=== PATIENT | female | born 1945 | race Caucasian/White ===

== ENCOUNTER 2021-11-06 10:56 | Inpatient (IN) | payer OTHER, MEDICAID ==
[~2021-11-06] VITALS: Ht 167.6 cm; Wt 90.3 kg
[~2021-11-06 10:56] MED LIST: AMLO10TA PO; APIX2.5 PO; ASPI-1822 PO; ATOR40TA PO; CEPH-588 PO; CITA20TA15 PO; HYDR-3233 PO; ICOS1SGL PO; ISOS20TA13 PO; METO25TE2 PO; NITR0.4T2 SL; PANT40EC PO; SEN30 PO; SEVE800T6 PO; TICA90TA PO
[2021-11-06 11:07] VITALS: BP 137/46
--- NOTE | 2021-11-06 11:28 | NUR ---
BIBA FROM HOME C/O CP AFTER DIALYSIS TODAY. STATES RECEIVING NITRO X3 DOSE AT HOME BY FAMILY. EMS GAVE 161MG ASA PILOT MANAGER. STATES PAIN WAS RESOLVED WHEN EMS ARRIVED BUT NOW STATES PAIN BACK AT 8/10. VITALS STABLE,, AAOX4, ON ROOM AIR, IV ESTABLISHED BY EMS PILOT MANAGER ON R AC 20G. EKG DONE AT BEDSIDE. STATES UNABLE TO URINATE.ON MONITOR.
[2021-11-06] MEDS ORDERED: AMLO5TAB PO (11:32)
[2021-11-06] MEDS ORDERED: ASPI-1749 PO (11:38)
[2021-11-06] MEDS ORDERED: HYDR-1100 PO (11:39)
[2021-11-06] MEDS ORDERED: NITR0.4T2 SL (11:39)
[2021-11-06] MEDS ORDERED: PANT40EC PO (11:39)
[2021-11-06] MEDS ORDERED: RANEX500 PO (11:39)
[2021-11-06] MEDS ORDERED: LIP80 PO (11:39)
[2021-11-06] MEDS ORDERED: ISOS60TE PO (11:39)
[2021-11-06] MEDS ORDERED: APIX2.5 PO (11:39)
[2021-11-06] MEDS ORDERED: CITA20TA15 PO (11:39)
[2021-11-06] MEDS ORDERED: METO25TA PO (11:39)
[2021-11-06] MEDS ORDERED: MULT-574 PO (11:39)
[2021-11-06] MEDS ORDERED: ICOS1SGL PO (11:39)
[2021-11-06] MEDS ORDERED: CLOP75TA55 PO (11:39)
--- NOTE | 2021-11-06 11:43 | NUR ---
BLOOD DRAWN BY LAB. PT STATES UNABLE TO PRODUCE URINE. ANDREED MADE AWARE.
--- NOTE | 2021-11-06 11:46 | NUR ---
XR AT BEDSIDE
--- NOTE | 2021-11-06 12:03 | NUR ---
STATES PAIN DECREASED TO 2/10. ERMD MADE AWARE
[2021-11-06 12:24] LABS: ALBUMIN 3.1 g/dL (3.4-5.0); ANION GAP 12.6 (8-16); ASPARTATE AMINOTRANSFERASE 17 U/L (15-37); CARBON DIOXIDE 31.1 mmol/L (21-32); CHLORIDE 95 mmol/L (98-107); CREATININE 3.9 mg/dL (0.6-1.3); GLUCOSE 379 mg/dL (74-106); LIPASE 137 U/L (73-393); POTASSIUM 3.7 mmol/L (3.5-5.1); SODIUM SERUM 135 mmol/L (136-145); TOTAL BILIRUBIN 0.3 mg/dL (0.0-1.0); UREA NITROGEN, BLOOD 27 mg/dL (7-18)
[2021-11-06 12:51] LABS: BASOPHILS % (AUTO) 0.3 % (0.0-2.0); EOSINOPHILS # (AUTO) 0.1 K/uL (0-0.4); LYMPHOCYTES # (AUTO) 0.6 K/uL (2.5-16.5); LYMPHOCYTES % (AUTO) 8.7 % (20.5-51.1); MEAN CORPUSCULAR HEMOGLOBIN 31 pg (27-31); MEAN CORPUSCULAR HGB CONC 33 g/dL (33-37); MEAN CORPUSCULAR VOLUME 94.8 fL (80-94); MONOCYTES # (AUTO) 0.4 K/uL (0.8-1.0); MONOCYTES % (AUTO) 5.7 % (1.7-9.3); NEUTROPHILS # (AUTO) 5.6 K/uL (1.8-7.7); NEUTROPHILS % (AUTO) 84.3 % (42.2-75.2); PLATELET COUNT (AUTO) 247 K/uL (140-450); RED BLOOD CELL COUNT(AUTO) 1.96 MIL/uL (4.20-5.40); RED CELL DISTRIBUTION WIDTH 17.4 % (11.6-13.7); WHITE BLOOD COUNT (AUTO) 6.6 K/uL (4.8-10.8)
[2021-11-06 12:54] LABS: HEMATOCRIT 18.6 % (36-48); HEMOGLOBIN 6.1 g/dL (12.0-16.0)
--- NOTE | 2021-11-06 13:50 | NUR ---
[employer] INFO FOR DAUGHTER: [phone]
--- NOTE | 2021-11-06 14:18 | NUR ---
DR MAHER AT BEDSIDE WITH MUFFLER INSTALLER FOR BLOOD TXFUSION CONSENT.
--- NOTE | 2021-11-06 16:00 | NUR ---
15 MIN POST BLOOD TRANSFUSION- NO REACTION OBESERVED. VITALS STABLE. INCREASED RATE TO 180ML/HR
[2021-11-06] MEDS ORDERED: POTASSIUM CHLORIDE 10 MEQ TABER PO PRN (17:30)
[2021-11-06] MEDS ORDERED: guaiFENesin DM 200/20 MG-10 ML 10 ML UDC PO PRN (17:30)
[2021-11-06] MEDS ORDERED: ZOLPIDEM 5 MG TAB PO PRN (17:30)
[2021-11-06] MEDS ORDERED: DOCUSATE SODIUM 100 MG GELCAP PO PRN (17:30)
[2021-11-06] MEDS ORDERED: ONDANSETRON 4 MG/2 ML VIAL IM/IVP PRN (17:30)
--- NOTE | 2021-11-06 18:48 | NUR ---
meal provided to patient.
[2021-11-06 19:09] LABS: FREE T4 (FREE THYROXINE) 1.05 ng/dL (0.76-1.46); PHOSPHORUS 2.5 mg/dL (2.5-4.9); THYROID STIMULATING HORMONE 0.62 uIU/mL (0.34-3.74)
--- NOTE | 2021-11-06 19:30 | NUR ---
Patient will be admitted to care of Dr. Welch. Admited to Tele. Will go to room 124B. Belongings list completed. Report to
--- NOTE | 2021-11-06 19:30 | NUR ---
PT TAKEN TO FLOOR WITH GIOVANNI PETIT AND EMT CHARLEY
--- NOTE | 2021-11-06 19:40 | NUR ---
RECEIVED PT FROM ER. REPORT GIVEN BY RN. PATIENT IS AWAKE,ALERT AND ORIENTED, POLISH SPEAKING ABLE TO UNDERSTAND LITTLE [place]. DENIES CHEST PAIN, DENIES SHORTNESS OF BREATH. SKIN WARM AND DRY TO TOUCH. ORIENTED TO MST SETTING, RN NAMES PROVIDED, UPDATED WHITEBOARD. BED IN THE LOWEST AND LOCKED POSITION FOR SAFETY, CALL LIGHT WITHIN REACH, EXPLAINED ON HOW TO USE, PT DEMONSTRATED USE. FALL PRECAUTION IN PLACE, BED ALARM ON.
[2021-11-06 20:00] VITALS: BP 106/31
--- NOTE | 2021-11-06 20:00 | NUR ---
SPOKE WITH DAUGHTER RODGER FOR ADMITTING QUESTIONS. INFORMED OF PT'S RM NUMBER.
[2021-11-06] MEDS: amLODIPine 5 MG TAB PO SCH (20:58)
[2021-11-06] MEDS: METOPROLOL 25 MG TAB PO SCH (20:58)
[2021-11-06] MEDS: ATORVASTATIN 20 MG TAB PO SCH (20:58)
--- NOTE | 2021-11-06 20:58 | NUR ---
BP-106/31 HR-53 BP MEDS LOPRESSOR AND NORVASC HELD PER DR. WILLARD.
--- NOTE | 2021-11-06 21:52 | NUR ---
2015 TROPONIN DONE RESULT 68. 2058 LAB CALLED FOR TROPONIN RESULTS. [address] WILLARD REGARDING TROPONIN RESULTS 2151 TROPONIN-[address] WILLARD, NO NEW ORDERS RECEIVED.
[2021-11-07] VITALS: BP 123/49
--- NOTE | 2021-11-07 | NUR ---
PATIENT IS ASLEEP, EASILY AROUSABLE BY VERBAL STIMULI. DENIES CHEST PAIN AT THIS TIME. VITAL SIGNS FOLLOWS: BP-123/49 HR-62 RR-18 TEMP-97.8 AND O2 SAT 95% ON ROOM AIR.
[2021-11-07 04:00] VITALS: BP 126/35
--- NOTE | 2021-11-07 04:17 | NUR ---
PATIENT IS ASLEEP. BREATHING EVEN AND UNLABORED. CALL LIGHT WITHIN REACH.
[2021-11-07 05:41] LABS: BASOPHILS % (AUTO) 0.5 % (0.0-2.0); EOSINOPHILS # (AUTO) 0.1 K/uL (0-0.4); EOSINOPHILS % (AUTO) 2.6 % (0.0-4.0); HEMATOCRIT 21.9 % (36-48); HEMOGLOBIN 7.4 g/dL (12.0-16.0); LYMPHOCYTES # (AUTO) 0.8 K/uL (2.5-16.5); LYMPHOCYTES % (AUTO) 17.9 % (20.5-51.1); MEAN CORPUSCULAR HEMOGLOBIN 32 pg (27-31); MEAN CORPUSCULAR HGB CONC 34 g/dL (33-37); MEAN CORPUSCULAR VOLUME 93.3 fL (80-94); MONOCYTES # (AUTO) 0.4 K/uL (0.8-1.0); MONOCYTES % (AUTO) 8.6 % (1.7-9.3); NEUTROPHILS # (AUTO) 3.3 K/uL (1.8-7.7); NEUTROPHILS % (AUTO) 70.4 % (42.2-75.2); PLATELET COUNT (AUTO) 304 K/uL (140-450); RED BLOOD CELL COUNT(AUTO) 2.35 MIL/uL (4.20-5.40); RED CELL DISTRIBUTION WIDTH 16.7 % (11.6-13.7); WHITE BLOOD COUNT (AUTO) 4.7 K/uL (4.8-10.8)
[2021-11-07 05:48] LABS: ANION GAP 14.1 (8-16); CARBON DIOXIDE 30.3 mmol/L (21-32); CHLORIDE 97 mmol/L (98-107); GLUCOSE 141 mg/dL (74-106); POTASSIUM 4.4 mmol/L (3.5-5.1); SODIUM SERUM 137 mmol/L (136-145); UREA NITROGEN, BLOOD 47 mg/dL (7-18)
[2021-11-07 05:56] LABS: CREATININE 5.5 mg/dL (0.6-1.3)
--- NOTE | 2021-11-07 06:10 | NUR ---
PATIENT ASLEEP. NO DISTRESS NOTED. ALL NEEDS ATTENDED TO. SAFETY PRECAUTIONS IN PLACE, CALL LIGHT REMAINED WITHIN REACH.
--- NOTE | 2021-11-07 07:08 | NUR ---
ENDORSED CARE TO AM NURSE FOR CONTINUITY OF CARE.
--- NOTE | 2021-11-07 07:10 | NUR ---
RECEIVED ENDORSEMENT FROM WAITER/WAITRESS CLUB NURSE FOR CONTINUITY OF CARE. PATIENT. SLEEP BUT ABLE TO WAKE UP DENIES PAIN AT THIS TIME. RESPIRATION EVEN AND NOT LABORED NO SHORTNESS OF BREATH ON ROOM AIR. AV SHUNT ON LEFT UPPER ARM AV SHUNT. ALL SAFETY MEASURE IN PLACE.
[2021-11-07 08:00] VITALS: BP 152/48
--- NOTE | 2021-11-07 08:21 | NUR ---
DR. PURVIS AT BED SIDE.
--- NOTE | 2021-11-07 08:56 | NUR ---
PATIENT HAS BEEN SCREENED AND CATEGORIZED MODERATE NUTRITION RISK. PATIENT WILL BE SEEN WITHIN 3-5 DAYS OF ADMISSION. / IRVING GANDARA RD
[2021-11-07 09:06] LABS: T4 (THYROXINE) 7.4 ug/dL (4.5-12.0)
[2021-11-07] MEDS: CITALOPRAM 20 MG TAB PO SCH (09:21)
[2021-11-07] MEDS: PANTOPRAZOLE 40 MG TABEC PO SCH (09:21)
[2021-11-07] MEDS: amLODIPine 5 MG TAB PO SCH ×2 (09:21→21:00)
[2021-11-07] MEDS: METOPROLOL 25 MG TAB PO SCH ×2 (09:22→21:00)
--- NOTE | 2021-11-07 09:27 | NUR ---
GIVEN MEDICATION AND PATIENT COMPLAIN UNABLE TO HAVE BOWEL MOVEMENT GIVEN COLACE ORDER FOR CONSTIPATION.
[2021-11-07 12:00] VITALS: BP 136/52
--- NOTE | 2021-11-07 15:29 | NUR ---
PATIENT NOTED WITH READING ON HEART MONITOR OF 49 DALI AND JUNCTIONAL. ASSESS PATIENT VERBALLY RESPONSIVE AND DENIES PAIN OR ANY DISCOMFORT.
--- NOTE | 2021-11-07 15:34 | NUR ---
DC PLANNIN YRS OLD FEMALE PATIENT WAS ADMITTED FROM HOME WITH A DX OF CHEST PAIN, ANEMIA. PATIENT HAS A HX OF ESRD ON HEMODIALYSIS CAD,HLD,HTN AND ELECTROLYTES IMBALANCE. CXR SHOWED CARDIOMEGALY AND PULMONARY VASCULAR CONGESTION. ON ADMISSION H/H 6.1/18.6 ADMINISTERED 1 UNIT OF PRBC H/H 7.4/21.9. ADMINISTERED AMIODARONE DRIP AND CONTINUED HOME MEDS. CONSULTED WITH NEPHRO, CARDIO AND PULMO. DC PLAN PER PT RESPOND TO THE TREATMENT. Addendum: 11/09/21 at 1540 by Anny Finn RN DC PLANNING: SEEN BY [facility] CONTINUE HD MWF. COAGULATING OPERATOR DR RAMIREZ CONVERTED TO SR CHANGED AMIODARONE TO PO. PULMO TO CONTINUE AGGRESSIVE DIALYSIS WITH NET NEGATIVE FLUID REMOVAL. CM TO FOLLOW
[2021-11-07 16:00] VITALS: BP 119/59
--- NOTE | 2021-11-07 19:46 | NUR ---
PATIENT ON BED RESTING WITH CALL LIGHT WITH IN EASY REACH. ON STABLE CONDITION.
[2021-11-07 20:00] VITALS: BP 159/56
[2021-11-07] MEDS: ATORVASTATIN 20 MG TAB PO SCH (21:00)
[2021-11-08] VITALS: BP 134/58
--- NOTE | 2021-11-08 01:30 | NUR ---
PATIENT ALERT SPEAKS ITALIAN ON MONITOR SINUS LUNGS DIMINISH SAT 96% PATIENT IS INCONT PATIENT IS OBESE NOT ABLE TO GET UP AND WALK TO BATHROOM. B/P 159/56 PATIENT TOOK ALL OF HER MEDS TWO FOR BLOOD PRESSURE. AND ONE FOR CHOLESTROL. NO C/O OF DISCOMFORT.
[2021-11-08 04:00] VITALS: BP 106/50
[2021-11-08 06:12] LABS: BASOPHILS % (AUTO) 0.3 % (0.0-2.0); EOSINOPHILS # (AUTO) 0.2 K/uL (0-0.4); EOSINOPHILS % (AUTO) 1.5 % (0.0-4.0); HEMATOCRIT 23.6 % (36-48); HEMOGLOBIN 7.9 g/dL (12.0-16.0); LYMPHOCYTES # (AUTO) 0.7 K/uL (2.5-16.5); LYMPHOCYTES % (AUTO) 6.8 % (20.5-51.1); MEAN CORPUSCULAR HEMOGLOBIN 31 pg (27-31); MEAN CORPUSCULAR HGB CONC 33 g/dL (33-37); MEAN CORPUSCULAR VOLUME 94.1 fL (80-94); MONOCYTES # (AUTO) 0.6 K/uL (0.8-1.0); MONOCYTES % (AUTO) 5.6 % (1.7-9.3); NEUTROPHILS # (AUTO) 9.4 K/uL (1.8-7.7); NEUTROPHILS % (AUTO) 85.8 % (42.2-75.2); PLATELET COUNT (AUTO) 243 K/uL (140-450); RED BLOOD CELL COUNT(AUTO) 2.51 MIL/uL (4.20-5.40); RED CELL DISTRIBUTION WIDTH 16.7 % (11.6-13.7)
[2021-11-08 07:03] LABS: ANION GAP 20.4 (8-16); CARBON DIOXIDE 25.7 mmol/L (21-32); CHLORIDE 92 mmol/L (98-107); GLUCOSE 196 mg/dL (74-106); POTASSIUM 5.1 mmol/L (3.5-5.1); SODIUM SERUM 133 mmol/L (136-145)
[2021-11-08 07:22] LABS: CREATININE 7.2 mg/dL (0.6-1.3); UREA NITROGEN, BLOOD 80 mg/dL (7-18)
--- NOTE | 2021-11-08 07:30 | NUR ---
RECEIVED REPORT FROM SALES PROJECT COORDINATOR NURSE FOR CONTINUITY OF CARE, POC DISCUSSED. PT IS RESTING IN BED, ON ROOM AIR WITH CHEST RISING AND FALLING EVEN AND UNLABORED. PT HAS A RIGHT AC 20 G. AND A LEFT AV SHUNT, PENDING CONSULT WITH RICK. RECEIVED CRITICAL FROM FABIO MCCORMACK 7.2 BUN 80. PENDING HD. ALL SAFETY MEASURES IN PLACE, CALL LIGHT WITHIN REACH WILL CONTINUE TO MONITOR.
[2021-11-08 08:00] VITALS: BP 94/40
[2021-11-08] MEDS: METOPROLOL 25 MG TAB PO SCH (08:38)
[2021-11-08] MEDS: amLODIPine 5 MG TAB PO SCH (08:38)
[2021-11-08] MEDS: CITALOPRAM 20 MG TAB PO SCH (09:04)
[2021-11-08] MEDS: PANTOPRAZOLE 40 MG TABEC PO SCH (09:06)
[2021-11-08] MEDS ORDERED: IBUPROFEN 400 MG TAB PO PRN (09:20)
--- NOTE | 2021-11-08 09:30 | NUR ---
LINK MEDICATION ADMINISTERED PER MD ORDER, PT TOLERATED ADMINISTRATION. LARD BLEACHER ASSISTED WITH CHANGING AND CLEANING OF THE PT. PT LUNG SOUNDS DIMINISHED. LEFT AV SHUNT NOTED. PT HAS A RIGHT AC 20 G SALINE LOCK. PT INCONTINENT. PT A&OX2. ALL SAFETY MEASURES IN PLACE, CALL LIGHT WITHIN REACH. WILL CONTINUE TO MONITOR.
--- NOTE | 2021-11-08 11:27 | NUR ---
PT IS RESTING WITH EYES SHUT, NO S/S OF ACUTE DISTRESS. ALL SAFETY MEASURES IN PLACE. CALL LIGHT WITHIN REACH. WILL CONTINUE TO MONITOR.
[2021-11-08 12:00] VITALS: BP 148/45
--- NOTE | 2021-11-08 12:03 | NUR ---
PT REPORTS HEADACHE FEELING BETTER AND ALL NEEDS ARE BEING MET. ALL SAFETY MEASURES IN PLACE, CALL LIGHT WITHIN REACH. WILL CONTINUE TO MONITOR.
--- NOTE | 2021-11-08 13:33 | NUR ---
REORIENTED PT THAT SHE IS IN THE HOSPITAL, PT CONFUSED, THOUGHT SHE WAS AT HOME. PT STABLE WITH ALL SAFETY MEASURES IN PLACE, CALL LIGHT WITHIN REACH.
--- NOTE | 2021-11-08 15:20 | NUR ---
ROUNDED ON PT, PT IS RESTING IN CHAIR NEXT TO BED WITH ALL SAFETY MEASURES IN PLACE. NO ACUTE S/S OF DISTRESS. ALL SAFETY MEASURES IN PLACE. CALL LIGHT WITHIN REACH. WILL CONTINUE TO MONITOR.
[2021-11-08 16:00] VITALS: BP 128/40
[2021-11-08] MEDS ORDERED: EPOETIN ALFA-EPBX 20,000 UNITS/ML VIAL SUBQ SCH (16:00)
--- NOTE | 2021-11-08 16:34 | NUR ---
LINK MEDICATION ADMINISTERED INTO ABD, PT TOLERATED ADMINISTRATION. DAUGHTER AT BEDSIDE, ALL QUESTIONS HAS BEEN ANSWERED. BLOOD GLUCOSE ASSESSED, 223. PER DAUGHTER, PT DOES NOT TAKE INSULIN AT HOME AND DOES NOT WANT HER TO RECEIVE THE INSULIN SINCE SHE IS NOT EATING MUCH. ALL QUESTIONS ANSWERED AND EDUCATION PROVIDED. ALL SAFETY MEASURES IN PLACE. CALL LIGHT WITHIN REACH. WILL CONTINUE TO MONITOR.
[2021-11-08] MEDS ORDERED: DEXTROSE 50% 50 ML SYR IVP PRN (16:45)
--- NOTE | 2021-11-08 17:56 | NUR ---
ROUNDED ON PT, PT ASLEEP IN BED WITH CHEST RISING AND FALLING EVEN AND UNLABORED. ALL SAFETY MEASURES IN PLACE, CALL LIGHT WITHIN REACH. WILL CONTINUE TO MONITOR.
--- NOTE | 2021-11-08 18:41 | NUR ---
HD AT BEDSIDE. ALL SAFETY MEASURES IN PLACE, CALL LIGHT WITHIN REACH. WILL CONTINUE TO MONITOR.
--- NOTE | 2021-11-08 18:48 | NUR ---
ALL NEEDS HAVE BEEN MET THROUGHOUT THE SHIFT, PT IS STABLE. WILL BE ENDORSED TO FORM RAISER NURSE AT 1900. ALL SAFETY MEASURES IN PLACE, CALL LIGHT WITHIN REACH.
--- NOTE | 2021-11-08 19:05 | NUR ---
TELEPHONE CONSENT FOR HD OBTAINED BY DAUGHTER, AND DR. WILLARD.
--- NOTE | 2021-11-08 19:15 | NUR ---
RECEIVED REPORT FROM AM RN. PATIENT IS ASLEEP AT THIS TIME. ON GOING HEMODIALYSIS ORDERED. NO S/SX OF PAIN NOR DISCOMFORT. NO ACUTE RESPIRATORY DISTRESS NOTED. BED IN THE LOWEST AND LOCKED POSITION FOR SAFETY, CALL LIGHT WITHIN REACH.
--- NOTE | 2021-11-08 19:20 | NUR ---
RECEIVED PATIENT AWAKE, ALERT, AND SITTING UP IN BED WATCHING TV. PATIENT IS RECEIVING A BLOOD TRANSFUSION, WHICH IS SCHEDULED TO BE COMPLETED BY 2015. PATIENT CURRENTLY DOES NOT REPORT ANY ADVERSE REACTIONS. PATIENT CURRENTLY DEPENDENT ON SUPPLEMENTAL OXYGEN, AT 2L VIA NC. HAS AV SHUNT, LEFT UPPER ARM. 22G PERIPHERAL IV RIGHT HAND. WILL CONTINUE TO MONITOR PATIENT FOR ANY ADVERSE REACTIONS TO BLOOD TRANSFUSION. Addendum: 11/10/21 at 0150 by Melly Sumner RN DISREGARD THIS NOTE INCORRECT DATE
[2021-11-08] MEDS: NITROGLYCERIN 0.4 MG TAB SL PRN ×3 (19:40→19:55)
[2021-11-08 20:00] VITALS: BP 118/51
[2021-11-08] MEDS ORDERED: DIGOXIN 0.25 MG/ML AMP IV ONE ×2 (20:00→20:08)
--- NOTE | 2021-11-08 20:20 | NUR ---
1939- PATIENT COMPLAINING OF 01/29 CHEST PAIN, NON RADIATING BP-169/69 HR-133 AFIB ON CITRIX LEAD RR-21, O2 SAT 91%, PLACED ON O2-2L. NITRO SUBLINGUAL GIVEN ORDERED. 1944-10/29 CHEST PAIN, BP-140/62 HR-115 AFIB ON CITRIX LEAD, O2 SAT ON 2L NC-99 %, 2ND NITRO GIVEN ORDERED. 1954 -10/29 CHEST PAIN, BP-128/55, HR-128 AFIB ON CITRIX LEAD, SAT 100%. 3RD NITRO GIVEN ORDERED. 1955- CALLED AND INFORMED DR. RAMIREZ OF PT'S COMPLAINT OF CHEST PAIN AND CARDIAC RHYTHM CONVERTED FROM SR TO AFIB IN THE 'S, INFORMED MD CURRENTLY ON HEMODIALYSIS, ORDERED RECEIVED AND WILL BE CARRIED OUT. (DIGOXIN AND AMIODARONE PO) 1999- BP DROPPED TO 81/27, ONGOING HD AT THIS TIME, PER HD RN WILL GIVE SOME VOLUME TO PT, INFORMED DR. RAMIREZ AND PATIENT STILL COMPLAINING OF CHEST PAIN AT THIS TIME. PER MD TRANSFER PATIENT TO ICU TO START AMIODARONE DRIP. 2014-DIGOXIN GIVEN ORDERED, HR 128 AFIB ON THE CITRIX LEAD BP-118/51. CURRENTLY PATIENT DENIES CHEST PAIN. 2019- POST DIGOXIN HR-122 AFIB ON THE CITRIX LEAD. PATIENT CURRENTLY ASLEEP. NO S/SX OF PAIN AT THIS TIME. ONGOING HEMODIALYSIS.
[2021-11-08] MEDS: BLOOD GLUCOSE MONITORING 1 DEV DEV FS SCH (20:24)
[2021-11-08] MEDS: ATORVASTATIN 20 MG TAB PO SCH (21:00)
--- NOTE | 2021-11-08 21:30 | NUR ---
DR. WILLARD PIPE CHIPPER FOR DR. PURVIS, INFORMED OF PATIENT'S CHANGE IN CONDITION AND ORDER FROM DR. RAMIREZ TO TRANSFER TO ICU. ORDERS RECEIVED AND WILL BE CARRIED OUT.
--- NOTE | 2021-11-08 21:57 | NUR ---
INFORMED DAUGHTER RODGER OF CHANGE IN CONDITION AND TRANSFER OF PATIENT TO ICU 6.
--- NOTE | 2021-11-08 22:15 | NUR ---
PATIENT TRANSFERRED TO ICU BED 2, BEDSIDE REPORT GIVEN TO GIOVANNI CALLAHAN. ALL BELONGINGS WITH PATIENT.
--- NOTE | 2021-11-08 22:20 | NUR ---
RECEIVED ENDORSEMENT FROM [facility] NURSE. PATIENT TRANSFERRED TO ICU FOR MANAGEMENT OF AFIB. PATIENT IS AWAKE, ALERT AND RESPONSIVE. PATIENT IS DEPENDENT ON HEMODIALYSIS AND DURING SESSION, THIS EVENING, 2L OF FLUID WAS REMOVED. PATIENT WITH LEFT AV SHUNT, PERIPHERAL IV RIGHT AC 20G, PERIPHERAL IV RIGHT FOREARM (20G).
[2021-11-08] MEDS ORDERED: AMIODARONE 450 MG in DEXTROSE 5% 250 ML IV SCH (22:25)
[2021-11-08] MEDS ORDERED: AMIODARONE 150 MG in DEXTROSE 5% 100 ML IV SCH (22:25)
[2021-11-08] MEDS ORDERED: NOREPINEPHRINE 4 MG in DEXTROSE 5% 250 ML IV PRN (22:25)
[2021-11-08] MEDS ORDERED: AMIODARONE 150 MG/3 ML VIAL IV ONE (22:38)
[2021-11-08] MEDS ORDERED: AMIODARONE 450 MG/9 ML VIAL IV ONE (22:39)
[2021-11-08 23:20] LABS: HEMATOCRIT 24.1 % (36-48); HEMOGLOBIN 7.7 g/dL (12.0-16.0); MEAN CORPUSCULAR VOLUME 96.5 fL (80-94); RED BLOOD CELL COUNT(AUTO) 2.49 MIL/uL (4.20-5.40); WHITE BLOOD COUNT (AUTO) 7.4 K/uL (4.8-10.8)
[2021-11-08 23:21] LABS: BASOPHILS % (AUTO) 0.1 % (0.0-2.0); EOSINOPHILS % (AUTO) 0.5 % (0.0-4.0); LYMPHOCYTES # (AUTO) 0.3 K/uL (2.5-16.5); LYMPHOCYTES % (AUTO) 4.1 % (20.5-51.1); MEAN CORPUSCULAR HEMOGLOBIN 31 pg (27-31); MEAN CORPUSCULAR HGB CONC 32 g/dL (33-37); MONOCYTES # (AUTO) 0.3 K/uL (0.8-1.0); MONOCYTES % (AUTO) 3.6 % (1.7-9.3); NEUTROPHILS # (AUTO) 6.8 K/uL (1.8-7.7); NEUTROPHILS % (AUTO) 91.7 % (42.2-75.2); PLATELET COUNT (AUTO) 190 K/uL (140-450); RED CELL DISTRIBUTION WIDTH 16.9 % (11.6-13.7)
[2021-11-08 23:33] LABS: ANION GAP 13.5 (8-16); CARBON DIOXIDE 29.2 mmol/L (21-32); CHLORIDE 100 mmol/L (98-107); GLUCOSE 203 mg/dL (74-106); POTASSIUM 3.7 mmol/L (3.5-5.1); SODIUM SERUM 139 mmol/L (136-145); UREA NITROGEN, BLOOD 33 mg/dL (7-18)
[2021-11-08 23:34] LABS: CREATININE 4.1 mg/dL (0.6-1.3)
[2021-11-09] VITALS (24 sets, daily range): BP systolic 119–185; BP diastolic 24–82
--- NOTE | 2021-11-09 | NUR ---
PATIENT REMAINS WITH FLUCTUATIONS OF HEART RATE AND BP. WILL CONTINUE TO MONITOR PATIENT
--- NOTE | 2021-11-09 01:10 | NUR ---
BEDSIDE GLUCOSE CHECK = 196 ADMINISTERED HUMALOG 2 UNITS PER MD ORDERS Addendum: 11/10/21 at 0212 by Melly Sumner RN PLEASE DISREGARD NOTE INCORRECT TIME
[2021-11-09 06:50] LABS: ANION GAP 13.3 (8-16); CARBON DIOXIDE 29.9 mmol/L (21-32); CHLORIDE 102 mmol/L (98-107); GLUCOSE 160 mg/dL (74-106); POTASSIUM 4.2 mmol/L (3.5-5.1); SODIUM SERUM 141 mmol/L (136-145); UREA NITROGEN, BLOOD 34 mg/dL (7-18)
--- NOTE | 2021-11-09 07:15 | NUR ---
ASSUMED pt care report received from Melly DAVILA at the bedside met pt awake alert Persian speaking vitals signs stable denies pain, Amiodarone drip turned off as per report received, O2 LNC will continue to monitor and treat.
[2021-11-09 07:22] LABS: HEMOGLOBIN 7.1 g/dL (12.0-16.0); MEAN CORPUSCULAR HEMOGLOBIN 32 pg (27-31); MEAN CORPUSCULAR VOLUME 94.3 fL (80-94); RED BLOOD CELL COUNT(AUTO) 2.23 MIL/uL (4.20-5.40); WHITE BLOOD COUNT (AUTO) 6.3 K/uL (4.8-10.8)
[2021-11-09 07:23] LABS: BASOPHILS % (AUTO) 0.2 % (0.0-2.0); EOSINOPHILS # (AUTO) 0.1 K/uL (0-0.4); EOSINOPHILS % (AUTO) 1.1 % (0.0-4.0); LYMPHOCYTES # (AUTO) 0.4 K/uL (2.5-16.5); LYMPHOCYTES % (AUTO) 6.7 % (20.5-51.1); MEAN CORPUSCULAR HGB CONC 34 g/dL (33-37); MONOCYTES # (AUTO) 0.5 K/uL (0.8-1.0); MONOCYTES % (AUTO) 7.5 % (1.7-9.3); NEUTROPHILS # (AUTO) 5.4 K/uL (1.8-7.7); NEUTROPHILS % (AUTO) 84.5 % (42.2-75.2); PLATELET COUNT (AUTO) 197 K/uL (140-450); RED CELL DISTRIBUTION WIDTH 16.6 % (11.6-13.7)
[2021-11-09] MEDS: BLOOD GLUCOSE MONITORING 1 DEV DEV FS SCH ×4 (07:30→21:08)
--- NOTE | 2021-11-09 07:32 | NUR ---
ENDORSED CARE OF PATIENT TO DAY SHIFT (GIOVANNI BHATT)
[2021-11-09 07:38] LABS: CREATININE 4.8 mg/dL (0.6-1.3)
[2021-11-09] MEDS: INSULIN LISPRO SLIDING SCALE 100 UNITS/ML VIAL SUBQ PRN ×4 (09:45→21:14)
[2021-11-09] MEDS: PANTOPRAZOLE 40 MG TABEC PO SCH (09:47)
[2021-11-09] MEDS ORDERED: hydrALAZINE 20 MG/ML VIAL IVP PRN (09:50)
[2021-11-09] MEDS: CITALOPRAM 20 MG TAB PO SCH (09:58)
[2021-11-09] MEDS ORDERED: MORPHINE SULFATE 2 MG/ML SYR IVP PRN (10:32)
--- NOTE | 2021-11-09 10:32 | NUR ---
pt complained of chest pain but her RHYTHM SINUS no ectopy, notified Dr Marcos order received to give Morphine 2mg ivp Q4H PRN for pain and 12 lead EKG.
--- NOTE | 2021-11-09 10:52 | NUR ---
@12 lead EKG done as per order received from Dr Marcos report sugested ISCHEMIA ANTEROLATERAL SR [id number]
--- NOTE | 2021-11-09 11:02 | NUR ---
Called pt's daughter Coni to clarify if pt is allergic to Morphine because it was order form Dr RAMIREZ to treat chest pain as per pt complain, but pt's daughter does not want her moter received any strong pain medications because as it amkes pt very confused that she does not remeber any of th family phone numbers. I related message to Dr RAMIREZ and also text hime with pt's daughter number to call.
[2021-11-09] MEDS ORDERED: ACETAMINOPHEN 325 MG TAB PO PRN ×2 (12:15→20:50)
--- NOTE | 2021-11-09 12:35 | NUR ---
Dr Huang was here at the bedside updates on pt's condition and order received for Hemodialysis in AM
--- NOTE | 2021-11-09 12:45 | NUR ---
Coni pt's daughter called back again for updates that Morphine not given but pt is not complaining of chest pain again after Hydralazine 10MG IVP given for high blood pressure.
[2021-11-09] MEDS: amLODIPine 5 MG TAB PO SCH (14:22)
--- NOTE | 2021-11-09 15:11 | NUR ---
SBAR given to Gayathri RN for continuity of care as at this time pt resting comfortable vitals signs stable no more complain of pain and no sign of distress noted.
--- NOTE | 2021-11-09 15:14 | NUR ---
DC PLANN[age] YRS OLD FEMALE PATIENT WAS ADMITTED FROM HOME WITH A DX OF CHEST PAIN, ANEMIA. PATIENT HAS A HX OF ESRD ON HEMODIALYSIS CAD,HLD,HTN AND ELECTROLYTES IMBALANCE. CXR SHOWED CARDIOMEGALY AND PULMONARY VASCULAR CONGESTION. ON ADMISSION H/H 6.1/18.6 AMINISTERED 1 UNIT OF PRBC H/H 7.4/21.9. ADMINISTERED AMIODARONE DRIP AND CONTINUED HOME MEDS. CONSULTED WITH NEPHRO, CARDIO AND PULMO. DC PLAN PER PT RESPOND TO THE TREATMENT.
--- NOTE | 2021-11-09 16:00 | NUR ---
BLOOD DOUBLE VERIFIED WITH RN PUSHPA. VSS. 1 UNIT PRBC STARTED. WILL CONTINUE TO MONITOR CLOSELY.
--- NOTE | 2021-11-09 16:08 | NUR ---
Dr Nieto called but this MD is not working on this pt case no inforamtion released due to [employer]
--- NOTE | 2021-11-09 19:10 | NUR ---
ENDORSED TO PARENT PARTNER NURSE ROBERTO FOR CONTINUITY OF CARE.
--- NOTE | 2021-11-09 19:20 | NUR ---
RECEIVED PATIENT AWAKE, ALERT, AND SITTING UP IN BED WATCHING TV. PATIENT IS RECEIVING A BLOOD TRANSFUSION, WHICH IS SCHEDULED TO BE COMPLETED BY 2014. PATIENT CURRENTLY DOES NOT REPORT ANY ADVERSE REACTIONS. PATIENT CURRENTLY DEPENDENT ON SUPPLEMENTAL OXYGEN, AT 2L VIA NC. HAS AV SHUNT, LEFT UPPER ARM. 22G PERIPHERAL IV RIGHT HAND. WILL CONTINUE TO MONITOR PATIENT FOR ANY ADVERSE REACTIONS TO BLOOD TRANSFUSION.
--- NOTE | 2021-11-09 20:30 | NUR ---
PATIENT WITH POST TRANSFUSION TEMP OF 100.2 (ORAL). MESSAGE SENT TO DR. WILLARD TO REQUEST ORDERS FOR TYLENOL PRN FOR ELEVATED TEMP. ORDERS RECEIVED AND ADDED TO EMR
[2021-11-09] MEDS: ATORVASTATIN 20 MG TAB PO SCH (20:57)
--- NOTE | 2021-11-09 21:14 | NUR ---
BEDSIDE GLUCOSE CHECK = 196 ADMINISTERED HUMALOG 2 UNITS PER MD ORDERS
[2021-11-10] VITALS (12 sets, daily range): BP systolic 93–171; BP diastolic 22–129
--- NOTE | 2021-11-10 | NUR ---
PATIENT ASLEEP,BREATHING EVEN AND UNLABORED,NO DISTRESS NOTED
[2021-11-10 05:50] LABS: CARBON DIOXIDE 27.4 mmol/L (21-32); CHLORIDE 99 mmol/L (98-107); GLUCOSE 141 mg/dL (74-106); POTASSIUM 4.4 mmol/L (3.5-5.1); SODIUM SERUM 140 mmol/L (136-145); UREA NITROGEN, BLOOD 59 mg/dL (7-18)
[2021-11-10 05:58] LABS: CREATININE 6.6 mg/dL (0.6-1.3)
[2021-11-10 06:08] LABS: BASOPHILS % (AUTO) 0.3 % (0.0-2.0); EOSINOPHILS # (AUTO) 0.2 K/uL (0-0.4); EOSINOPHILS % (AUTO) 3.1 % (0.0-4.0); HEMATOCRIT 25.2 % (36-48); HEMOGLOBIN 8.4 g/dL (12.0-16.0); LYMPHOCYTES # (AUTO) 0.7 K/uL (2.5-16.5); MEAN CORPUSCULAR HEMOGLOBIN 32 pg (27-31); MEAN CORPUSCULAR HGB CONC 33 g/dL (33-37); MEAN CORPUSCULAR VOLUME 94.3 fL (80-94); MONOCYTES # (AUTO) 0.5 K/uL (0.8-1.0); MONOCYTES % (AUTO) 7.3 % (1.7-9.3); NEUTROPHILS # (AUTO) 5.3 K/uL (1.8-7.7); NEUTROPHILS % (AUTO) 79.3 % (42.2-75.2); PLATELET COUNT (AUTO) 229 K/uL (140-450); RED BLOOD CELL COUNT(AUTO) 2.67 MIL/uL (4.20-5.40); RED CELL DISTRIBUTION WIDTH 16.4 % (11.6-13.7); WHITE BLOOD COUNT (AUTO) 6.7 K/uL (4.8-10.8)
[2021-11-10] MEDS: BLOOD GLUCOSE MONITORING 1 DEV DEV FS SCH ×4 (06:59→21:49)
--- NOTE | 2021-11-10 07:24 | NUR ---
ENDORSED PATIENT TO DAYSHIFT RN (SHIVA)
--- NOTE | 2021-11-10 07:30 | NUR ---
Received pt alert and oriented x4. On O2 2l/min via nasal cannula. Sinus rhythm on monitor. Active bowel sounds x4 quads. Pt anuric. AV shunt on left arm with + bruit and thrill. Peripheral IV 20 gauge on right hand intact and patent. Safety precautions in place.
--- NOTE | 2021-11-10 08:00 | NUR ---
Seen and examined by Dr. Metcalf. New order received.
[2021-11-10] MEDS: CITALOPRAM 20 MG TAB PO SCH (08:06)
[2021-11-10] MEDS: PANTOPRAZOLE 40 MG TABEC PO SCH (08:07)
[2021-11-10] MEDS: amLODIPine 5 MG TAB PO SCH (08:09)
--- NOTE | 2021-11-10 09:02 | NUR ---
Collected stool sample for occult blood and walked to lab.
[2021-11-10] MEDS: INSULIN LISPRO SLIDING SCALE 100 UNITS/ML VIAL SUBQ PRN ×2 (11:11→21:48)
--- NOTE | 2021-11-10 12:21 | NUR ---
Dr. Lizama at bedside examining pt. Daughter at bedside. All questions answered.
[2021-11-10] MEDS ORDERED: EPOETIN ALFA-EPBX 10,000 UNITS/ML VIAL SUBQ SCH (12:35)
--- NOTE | 2021-11-10 12:38 | NUR ---
Seen and examined by Dr. Cassidy. No new orders.
--- NOTE | 2021-11-10 14:35 | NUR ---
Dialysis nurse at bedside starting hemodialysis.
--- NOTE | 2021-11-10 14:39 | NUR ---
11/10/21 RD INITIAL ASSESSMENT COMPLETED PLEASE REFER TO NUTRITION ASSESSMENT UNDER CARE ACTIVITY FOR ESTIMATED NUTRITIONAL NEEDS. 1. RECOMMEND RENAL + CCHO 60GM DIET TOLERATED 2. CONTINUE NEPRO BID FOR NUTRITION SUPPORT 3. RD TO FOLLOW-UP 3-5 DAYS, MODERATE RISK IRVING GANDARA, RD
--- NOTE | 2021-11-10 15:52 | NUR ---
Dr. Marcos at bedside examining pt.
--- NOTE | 2021-11-10 16:02 | NUR ---
Dr. Marcos discussing plan of care with daughter Mary.
--- NOTE | 2021-11-10 17:35 | NUR ---
Dialysis completed. 1.8 L removed. Vital signs stable. No active bleeding on left AV shunt.
--- NOTE | 2021-11-10 19:17 | NUR ---
Endorsed to charger operator nurse Mayi for continuity of care.
--- NOTE | 2021-11-10 19:25 | NUR ---
RECEIVED PATIENT ON BED,AWAKE,ALERT AND ORIENTED; BREATHING EVEN AND UNLABORED ON ROOM AIR S02 98%. CARDIACSCOPE SHOWS ON SINUS RHYTHM WITH IST DEGREE AV BLOCK HR 75/MIN. WITH SALINE LOCK G22 ON RIGHT HAND; INTACT; AV SHUNT ON LEFT ARM FOR HD ACCESS. ABDOMEN IS SOFT,OBESE, ACTIVE BOWEL SOUNDS.
--- NOTE | 2021-11-10 19:40 | NUR ---
FOR TRANSFER TO TELE UNIT ORDERED.
--- NOTE | 2021-11-10 20:10 | NUR ---
TRANSFERRED TO TELEMETRY [id number] PER BED FOR CONTINUITY OF CARE. ENDORSED TO GIOVANNI COLIN.
--- NOTE | 2021-11-10 20:24 | NUR ---
CALLED PATIENTS DAUGHTER RODGER 2X TO INFORM OF PATIENT'S TRANSFER TO TELE BUT SHE DIDN'T [employer]ULAT[employer] AFFAIRS PORTFOLIO LEADER THE PHONE AND HER PHONE CAN'T ACCEPT VOICE,MESSAGES BEC. IT'S FULL.
--- NOTE | 2021-11-10 20:30 | NUR ---
RECEIVED PATIENT FROM ICU NURSE FOR CONTINUITY OF CARE.PT IS STABLE
[2021-11-10] MEDS: ATORVASTATIN 20 MG TAB PO SCH (21:36)
[2021-11-10] MEDS: APIXABAN 2.5 MG TAB PO SCH (21:37)
[2021-11-11] VITALS: BP 147/33
[2021-11-11 04:00] VITALS: BP 124/37
[2021-11-11 06:14] LABS: BASOPHILS % (AUTO) 0.5 % (0.0-2.0); EOSINOPHILS # (AUTO) 0.3 K/uL (0-0.4); EOSINOPHILS % (AUTO) 4.8 % (0.0-4.0); HEMATOCRIT 25.1 % (36-48); HEMOGLOBIN 8.4 g/dL (12.0-16.0); LYMPHOCYTES # (AUTO) 0.6 K/uL (2.5-16.5); LYMPHOCYTES % (AUTO) 11.1 % (20.5-51.1); MEAN CORPUSCULAR HEMOGLOBIN 32 pg (27-31); MEAN CORPUSCULAR HGB CONC 34 g/dL (33-37); MEAN CORPUSCULAR VOLUME 94.5 fL (80-94); MONOCYTES # (AUTO) 0.4 K/uL (0.8-1.0); MONOCYTES % (AUTO) 7.9 % (1.7-9.3); NEUTROPHILS # (AUTO) 4.1 K/uL (1.8-7.7); NEUTROPHILS % (AUTO) 75.7 % (42.2-75.2); PLATELET COUNT (AUTO) 247 K/uL (140-450); RED BLOOD CELL COUNT(AUTO) 2.66 MIL/uL (4.20-5.40); RED CELL DISTRIBUTION WIDTH 16.1 % (11.6-13.7); WHITE BLOOD COUNT (AUTO) 5.4 K/uL (4.8-10.8)
[2021-11-11 06:30] LABS: ANION GAP 15.1 (8-16); CARBON DIOXIDE 27.9 mmol/L (21-32); CHLORIDE 100 mmol/L (98-107); GLUCOSE 132 mg/dL (74-106); SODIUM SERUM 139 mmol/L (136-145); UREA NITROGEN, BLOOD 31 mg/dL (7-18)
--- NOTE | 2021-11-11 06:42 | NUR ---
CREATININE RESULTS 4.8, WHICH IS TRENDING DOWN FROM 6.6
[2021-11-11 06:43] LABS: CREATININE 4.8 mg/dL (0.6-1.3)
[2021-11-11] MEDS: BLOOD GLUCOSE MONITORING 1 DEV DEV FS SCH (06:58)
--- NOTE | 2021-11-11 07:20 | NUR ---
ENDORSED PT TO AM NURSE FOR CONTINUITY OF CARE.PT IS STABLE
[2021-11-11] MEDS ORDERED: CLOP75TA55 PO (08:22)
[2021-11-11] MEDS ORDERED: CLOPIDOGREL 75 MG TAB PO SCH (09:00)
[2021-11-11] MEDS: CITALOPRAM 20 MG TAB PO SCH (09:02)
[2021-11-11] MEDS: APIXABAN 2.5 MG TAB PO SCH (09:02)
[2021-11-11] MEDS: PANTOPRAZOLE 40 MG TABEC PO SCH (09:10)
[2021-11-11] MEDS: amLODIPine 5 MG TAB PO SCH (09:10)
--- NOTE | 2021-11-11 10:53 | NUR ---
PT DISCHARGED HOME WHEELED TO [facility] AND ASSISTED WITH DAUGHTER INTO PRIVATE VEHICLE. ALL PERSONAL BELONGINGS IN POSSESSION. IV REMOVED, CANULA INTACT, PT CONTINUED TO BLEED WITH PRESSURE. IV SITE, REDRESSED AND WRAPPED WITH ICE TO REDUCE BLEEDING. ALL SAFETY MEASURES IN PLACE. NO S/S OF DISTRESS. EDUCATED PT AND FAMILY OF DISCHARGE ORDERS, EXPLAINED AND HIGHLIGHTED MEDICATION CHANGES.
[2021-11-11] MEDS ORDERED: AMIODARONE 200 MG TAB PO SCH (21:00)
== END 2021-11-11 10:45 | disposition home or self-care (01) | DRG 280 ==
LOC: MED 10:56 → MTU 14:36 → MIC 11-08 22:02 → MTU 11-10 19:47
PROVIDERS: ADMIT Family Medicine; ATTEND Family Medicine
PROC: 30233N1 Transfusion of Nonautologous Red Blood Cells into Peripheral Vein, Percutaneous Approach (ICD-10-PCS; principal; 2021-11-06)
PROC: 5A1D70Z Performance of Urinary Filtration, Intermittent, Less than 6 Hours Per Day (ICD-10-PCS; 2021-11-08)
PROC: 5A1D70Z Performance of Urinary Filtration, Intermittent, Less than 6 Hours Per Day (ICD-10-PCS; 2021-11-09)
DX: I21.4 Non-ST elevation (NSTEMI) myocardial infarction (principal); I50.33 Acute on chronic diastolic (congestive) heart failure; N18.6 End stage renal disease; J96.01 Acute respiratory failure with hypoxia; I13.2 Hypertensive heart and chronic kidney disease with heart failure and with stage 5 chronic kidney disease, or end stage renal disease; I25.10 Atherosclerotic heart disease of native coronary artery without angina pectoris; E78.5 Hyperlipidemia, unspecified; E87.8 Other disorders of electrolyte and fluid balance, not elsewhere classified; I48.0 Paroxysmal atrial fibrillation; I49.5 Sick sinus syndrome; Z20.822 Contact with and (suspected) exposure to COVID-19; E11.22 Type 2 diabetes mellitus with diabetic chronic kidney disease; Z88.5 Allergy status to narcotic agent; Z88.8 Allergy status to other drugs, medicaments and biological substances; Z88.6 Allergy status to analgesic agent; Z79.899 Other long term (current) drug therapy; Z79.01 Long term (current) use of anticoagulants; D64.9 Anemia, unspecified
CPT/HCPCS: 36415; 36430; 71045; 80048; 80053; 82150; 82272; 82948; 83036; 83690; 83735; 83880; 84100; 84436; 84439; 84443; 84479; 84484; 85025; 85610; 85730; 86886; 86900; 86901; 86920; 87081; 93005; 99285; J0282; J0360; J1160; J1815; J2405; P9016; Q0092; Q5106